=== PATIENT | female | born 1960 | race Caucasian/White ===

== ENCOUNTER 2020-09-19 23:47 | Emergency (ER) | payer OTHER ==
[~2020-09-19] VITALS: Ht 170.2 cm; Wt 70.2 kg
[2020-09-20 00:29] LABS: BASOPHILS % (AUTO) 1 % (0-1); EOSINOPHILS % (AUTO) 2 % (1-7); LYMPHOCYTES % (AUTO) 42 % (22-44); MEAN CORPUSCULAR HEMOGLOBIN 33.8 pg (27.0-34.8); MEAN CORPUSCULAR HGB CONC 34.6 g/dL (32.4-35.8); MEAN PLATELET VOLUME 8.4 fL (7.4-10.4); MONOCYTES % (AUTO) 9 % (2-9); NEUTROPHILS % (AUTO) 47 % (42-75); PLATELET COUNT 158 x10^3/uL (130-400); RED BLOOD COUNT 4.12 x10^6/uL (3.82-5.3); RED CELL DISTRIBUTION WIDTH 13.6 % (9.6-15.2)
[2020-09-20 00:32] LABS: MD NO
--- NOTE | 2020-09-20 00:32 | NUR ---
PATIENT PRESENTING WITH REPORTED "SURGES" WHILE TRYING TO SLEEP AND DESCRIBES THEM "ADRENALINE RUSHES". PATIENT REPORTS HE SPEECH CHANGES TO A MORE FAST PACED SPEECH AND SOMETIMES SHE IS UNABLE TO CORRECTLY SPEAK FLUENTLY WHEN THIS HAPPENS. PATIENT HAD A FEW EPISODES THAT SHE REPORTED WHILE RN AND BRO REDDING AT BEDSIDE AND PATIENT JUST STOPPED TALKING WHEN THIS HAPPENED AND THEN STATES "SEE ITS HAPPENING. I CANT TALK". PATIENT WAS IN FACT TALKING AND THIS SPEECH WAS CLEAR AND COMPREHENSIBLE. LIMITED STROKE SCALE PERFORMED BY THIS RN AND PATIENT HAD NO STROKE LIKE ABNORMALITIES DURING THIS ASSESSMENT. ALL LIMBS STRONG IN STRENGTH, NO PARASTHESIAS AT THIS TIME, SYMETRICAL FACIAL MOVEMENT, CLEAR SPEECH. BRO REDDING TO BEDSIDE. WILL CONTINUE TO MONITOR. EKG PERFORMED STAT BY RN'S JUDGMENT. CALL BENZ IN REACH
[2020-09-20 00:37] LABS: ALANINE AMINOTRANSFERASE 40 U/L (12-78); ALBUMIN 3.7 g/dL (3.4-5.0); ANION GAP 9 mmol/L (5-15); CALCIUM 8.8 mg/dL (8.5-10.1); CHLORIDE 105 mmol/L (98-107); CREATININE 0.83 mg/dL (0.55-1.02)
[2020-09-20 00:47] LABS: ALKALINE PHOSPHATASE 81 U/L (45-117); BILIRUBIN,TOTAL 0.5 mg/dL (0.2-1.0); FREE T4 (FREE THYROXINE) 0.76 ng/dL (0.76-1.46)
[2020-09-20] MEDS ORDERED: LORazepam 1MG TABLET ONE (01:26)
[2020-09-20] MEDS ORDERED: LORazepam 1MG TABLET PO ONE (01:30)
--- NOTE | 2020-09-20 01:40 | NUR ---
DISCHARGE INSTRUCTIONS REVIEWED WITH PATIENT. ALL QUESTIONS ANSWERED TO PATIENT'S SATISFACTION. DR. CHAMBERS APPROVED PATIENT TO RECEIVE ATIVAN PO AND DISCHARGE WITHOUT FURTHER MONITORING. VS REMAIN STABLE ON RA. DENIES CP/SOB ON DEPARTURE. IV REMOVED PER DC PROTOCOL. ALL PERSONAL BELONGINGS WITH PATIENT ON DC. EDUCATION REVIEWED WITH PATIENT ON ATARAX AND ATIVAN AND RESTRICTIONS WITH THESE. PATIENT VERBALIZED UNDERSTANDING. STEADY GAIT TO LOBBY
[2020-09-20 01:45] VITALS: BP 147/94
== END 2020-09-20 01:48 | disposition home or self-care (01) ==
LOC: ED 23:47
DX: R00.2 Palpitations (principal); F41.1 Generalized anxiety disorder; F51.01 Primary insomnia; I49.3 Ventricular premature depolarization
CPT/HCPCS: 36415; 71045; 80053; 84439; 84443; 85025; 93005; 99285